=== PATIENT | male | born 1990 | race Caucasian/White ===

== ENCOUNTER 2022-10-04 22:28 | Emergency (ER) | payer SELFPAY | END 2022-10-05 00:35 | disposition home or self-care (01) | LOC: JD.ED 22:28 | DX: M54.50 Low back pain, unspecified (principal); E66.9 Obesity, unspecified; Z68.37 Body mass index [BMI] 37.0-37.9, adult; Z86.16 Personal history of COVID-19; X50.0XXA Overexertion from strenuous movement or load, initial encounter; Y99.0 Civilian activity done for income or pay | CPT/HCPCS: 99283 ==